=== PATIENT | female | born 1985 | race Asian ===

== ENCOUNTER 2017-02-26 22:59 | Emergency (ER) | payer OTHER ==
--- NOTE | ~2017-02-26 | CT2 ---
[facility] A Service of [facility] & [facility] RADIOLOGY TEXT RESULTS PATIENT: OMI OLIVA LOCATION: [facility] : 89 UNIT #: [id number] AGE: [address]: Dave Taylor DO SEX: F ORDER DR: [id number] [facility] [address] [place], [place] [address] [id number] MR#: [id number] Acc #: [id number] NAME: OMI OLIVA : 1985 SEX: F STUDY DATE/TIME: 02/27/2017 03:00 UNIT: [facility] ROOM: STUDY DESCRIPTION: CT Abd and Pelv W Cont Attending Physician: Dave Taylor D.O. Ordering Physician: Dave Taylor D.O. Primary Care Physician: No Primary Care Physician MEDICAL IMAGING REPORT This report is preliminary unless electronic signature is present EXAM Abdomen and pelvis CT, 02/27 at 03:00. INDICATIONS Left side abdominal pain and back pain for 2 weeks. TECHNIQUE Axial images were obtained through the abdomen and pelvis following IV contrast administration. Multiplanar reformats were obtained. Comparison made with 05/26/2014. This CT exam was performed with one or more of the following radiation dose reduction techniques: automatic exposure control, adjustment of mA and/or kV according to patient size, and iterative reconstruction. FINDINGS Abdomen: There is dependent atelectasis in the lung bases and there is a right lower lobe calcified granuloma. Gallbladder is unremarkable. No biliary obstruction is seen. Solid organs are normal. There is no adenopathy or free fluid. Unopacified GI tract is normal. Pelvis: The appendix contains an appendicolith, but is otherwise unchanged from the prior study. No adjacent inflammation. The unopacified GI tract is otherwise unremarkable. Urinary bladder is normal. Solid pelvic organs are normal. No free fluid. IMPRESSION 1. The appendix does contain an appendicolith, but it is otherwise normal and unchanged from the 2014 exam. Acute appendicitis is considered unlikely. The remainder of the unopacified GI tract is normal. 2. The remainder of the abdomen and pelvis CT is normal. Dictated by... [facility] A Service of [facility] & [facility] RADIOLOGY TEXT RESULTS PATIENT: OMI OLIVA LOCATION: [facility] : 89 UNIT #: [id number] AGE: [address]: Dave Taylor DO SEX: F ORDER DR: Arnei Leong Jr., M.D. THIS IS AN ELECTRONICALLY VERIFIED REPORT Arnie Leong Jr., M.D. at 02/27/2017 7:21 PM LUIS/carter TD: 02/27/2017 07:26 JOB #: [id number] MEDICAL IMAGING REPORT Page 1 of 1 COPY
[2017-02-27 01:06] LABS: URINE SOURCE CLEAN CATCH
[2017-02-27 01:12] LABS: URINE APPEARANCE CLOUDY; URINE BILIRUBIN NEG (NEG); URINE BLOOD TRACE (NEG); URINE COLOR YELLOW; URINE GLUCOSE >1000 MG/DL (NEG); URINE KETONE TRACE (NEG); URINE LEUKOCYTE ESTERASE 2+ (NEG); URINE NITRATE NEG (NEG); URINE PH 6.5 (5-8); URINE PROTEIN NEG (NEG); URINE SPECIFIC GRAVITY 1.014 (1.003-1.035); URINE UROBILINOGEN 0.2 MG/DL (NEG)
[2017-02-27 01:13] LABS: BASOPHIL# 0.2 X10e3 (0-0.3); BASOPHIL% 1.3 % (0-2.5); DIFF IND NO; EOSINOPHIL# 0.4 X10e3 (0-0.7); EOSINOPHIL% 2.9 % (0.0-7.0); HEMATOCRIT 43.9 % (35.0-45.0); HEMOGLOBIN 14.2 gm/dL (12.0-16.0); LYMPHOCYTE# 4.3 X10e3 (1.0-3.5); LYMPHOCYTE% 33.5 % (17.0-45.0); MEAN CELL VOLUME 85.5 FL (83-96); MEAN CORPUSCULAR HEMOGLOBIN 27.6 PG (28-34); MEAN CORPUSCULAR HGB CONC 32.2 g/dL (30-36); MONOCYTE# 0.7 X10e3 (0-1.0); MONOCYTE% 5.7 % (3.0-12.0); NEUTROPHIL# 7.2 X10e3 (1.5-7.1); NEUTROPHIL% 56.6 % (40-75); PLATELET COUNT 404 X10e3 (140-420); RED BLOOD COUNT 5.13 X10e (3.90-5.30); RED CELL DISTRIBUTION WIDTH 13.2 % (11.0-15.5); WHITE BLOOD COUNT 12.7 X10e3 (4.0-10.5)
[2017-02-27 01:15] LABS: CULTURE INDICATED? YES; URBCS1 AUWI 0-2 /[HPF] (0-2); URINE BACTERIA AUWI 2+ (NEGATIVE); URINE SQUAMOUS EPITHELIAL CELL MOD /[HPF]; UWBCS1 AUWI 100-200 (0-5)
[2017-02-27 01:38] LABS: ALBUMIN SERUM 4.1 g/dL (3.5-5.0); BILIRUBIN, DIRECT 0.1 mg/dL (0.0-0.2); BILIRUBIN,INDIRECT 0.5 mg/dL (0.0-0.9); BILIRUBIN,TOTAL 0.6 mg/dL (0.2-2.0); BUN/CREATININE RATIO 23.33; CALCIUM SERUM 9.3 mg/dL (8.4-10.2); CREATININE SERUM 0.6 mg/dL (0.6-1.4); GLOM FILT RATE Estimated 123.2 mL/min (>60); POTASSIUM 3.6 mmol/L (3.5-5.1); PROTEIN TOTAL SERUM 8.5 g/dL (6.0-8.3)
== END 2017-02-27 05:30 | disposition home or self-care (01) ==
LOC: CED 22:59
PROVIDERS: Emergency Medicine
DX: N30.90 Cystitis, unspecified without hematuria (principal); E11.9 Type 2 diabetes mellitus without complications; I10 Essential (primary) hypertension
CPT/HCPCS: 36415; 74177; 80048; 80076; 81003; 83690; 84484; 84703; 85025; 85379; 87086; 87088; 87186; 96365; 99284; J0696; Q9967